=== PATIENT | male | born 1960 | race Caucasian/White ===

== ENCOUNTER 2024-12-25 16:07 | Inpatient (IN) ==
[2024-12-25 16:37] LABS: Hematocrit (blood only) 42.1 % (42.0-52.0); Hemoglobin 15.5 g/dl (14.0-18.0); Immature Granulocytes # (auto) 0.01 K/uL (0.01-0.20); Immature Granulocytes % (auto) 0.2 %; Mean Corpuscular Hemoglobin 33.0 pg (25.0-34.0); Mean Corpuscular Volume 89.6 fL (80.0-100.0); Platelet Count 173 K/uL (130-400); RDW Standard Deviation 45.8 fL (36.4-46.3); Red Blood Count 4.70 M/uL (4.70-6.10); White Blood Count 6.04 K/ul (4.8-10.8)
[2024-12-25 16:55] LABS: Alanine Aminotransferase 18.0 U/L (7-52); Albumin Globulin Ratio 1.2 (0.9-2); Albumin Level 4.6 gm/dl (3.4-5.0); Alkaline Phosphatase 59.0 U/L (34-104); Anion Gap 8.0 (3-11); Bilirubin,Total 0.4 mg/dl (0.2-1.0); Blood Urea Nitrogen 21.0 mg/dl (6-23); Calcium 9.6 mg/dl (8.6-10.3); Carbon Dioxide 25.0 mmol/L (21-32); Chloride 105.0 mmol/L (98-107); Creatinine Clr Calc Pharmacy 61.4 ml/min; Globulin 3.8 gm/dl (2.5-4.0); Glucose 133.0 mg/dl (70-99(Fasting)); Potassium 3.7 mmol/L (3.5-5.1); Sodium 138.0 mmol/L (136-145); Total Protein 8.4 gm/dl (6.0-8.3)
--- NOTE | 2024-12-25 17:02 | Emergency Department Note ---
Impression & Plan Stroke-like symptoms, Transient cerebral ischemia ED Provider Note NAME: RAJINDER TURCIOS AGE: 64 SEX: M : 1960 ARRIVES VIA: Walk-In INFORMANT: Patient, ED PROVIDER(S): Jose Ryder MD CHIEF COMPLAINT: Right hand weakness HPI: This is 64-year-old male presenting for right hand weakness. Patient notes that he felt somewhat off, was spinning sensation with a headache as well as right hand weakness starting around noon. He notes he just woke up from a nap. 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 He states was having trouble shaving his face due to not being coordinated. At the same time he also notes that he felt somewhat dizzy. Symptoms have resolved now. No associated chest pain, shortness of breath, back pain, facial droop, slurred speech ROS: See above HPI for pertinent positives & negatives. A total of 10 systems reviewed and were otherwise negative. PAST MEDICAL HISTORY: See Below PAST SURGICAL HISTORY: See Below FAMILY HISTORY: See Below SOCIAL HISTORY: See Below HOME MEDICATIONS: See Below ALLERGIES: See Below VITALS: See Below PHYSICAL EXAMINATION: General: resting comfortably in no acute distress Head: Normocephalic and atraumatic Eyes: Normal inspection, extraocular muscles intact Ear, nose, throat: Normal external exam Neck: Normal range of motion Respiratory: lungs clear to auscultation bilaterally Cardiovascular: Regular rate/rhythm, no murmur GI: soft, nontender, no guarding or rebound Extremities: nontender, moves all extremities Neuro: The patient awake and alert, appropriately conversive, no focal deficits, symmetric faces, cranial nerves II through XII intact, no motor weakness, no dysmetria, no motor drift Skin: Warm, dry, and intact MEDICAL DECISION MAKING: This is a 64-year-old male presenting for right hand weakness. Patient has 5/5 strength all extremities. He appears clinically well. Considered stroke, TIA, vertigo, intracranial hemorrhage. Will do screening blood work, urinalysis and CT imaging of the head to rule out stroke. Low concern for LVO currently - bloodwork is reviewed showing no significant leukocytosis, anemia, electrolyte or creatinine abnormality Urinalysis negative - CT imaging does not reveal acute process but does reveal bilateral moderate stenosis of the proximal ICA without LVO - Will admit patient for further TIA/stroke workup based on symptoms Differential diagnosis: TIA stroke, hemorrhage Independent History obtained from: Diagnostics interpreted by me: ECG: ECG independently interpreted by me with sinus tachycardia at a rate of 104, first-degree AV block normal QRS, normal QTc, no ST segment elevations consistent with STEMI criteria Cardiac Monitoring: An order was placed for continuous cardiac monitoring. The monitor shows a rate of 88 with sinus rhythm. 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 Beliefs That Will Affect Care: None Current Living Situation: Spouse Feels Safe at Home: Yes Safety Concerns: Feels Safe At This Time Allergies Allergies Allergy/AdvReac Type Severity Reaction Status Date / Time No Known Allergies Unverified 12/25/24 19:47 Home Meds Home Medications Medication Instructions Recorded Confirmed allopurinol 100 mg tablet 50 mg PO DAILY 12/25/24 12/25/24 allopurinol 300 mg tablet 300 mg PO DAILY 12/25/24 12/25/24 candesartan 32 mg tablet 32 mg PO DAILY 12/25/24 12/25/24 etanercept 50 mg/mL (1 mL) 50 mg subcut WK 12/25/24 12/25/24 subcutaneous pen injector (Enbrel SureClick) indapamide 2.5 mg tablet 2.5 mg PO DAILY 12/25/24 12/25/24 omeprazole magnesium 20 mg 20 mg PO DAILY 12/25/24 12/25/24 tablet,delayed release (Prilosec OTC) Results & Data (ED) Vital Signs Vital Signs - 24 hr 12/25/24 16:07 12/25/24 16:23 12/25/24 16:24 Temperature 36.6 C Temperature Source Oral Pulse Rate 110 H 100 H Pulse Rate [Apical] Pulse Rhythm [Apical] Pulse Strength [Apical] Respiratory Rate 18 Respiratory Effort / Characteristics Respiratory Depth Respiratory Pattern Blood Pressure 197/103 H Blood Pressure [Right Arm] Blood Pressure Mean 134 Blood Pressure Mean [Right Arm] Blood Pressure Position [Right Arm] Pulse Oximetry 97 98 Oxygen Delivery Method Room Air Sepsis Recent Fever Within 48 Hours No Sepsis New/Unexplained Change in Mental Status N/A Sepsis Action Taken by Nursing No Action Required 12/25/24 17:07 12/25/24 17:35 Temperature Temperature Source Pulse Rate Pulse Rate [Apical] 103 H Pulse Rhythm [Apical] Regular Pulse Strength [Apical] Normal Respiratory Rate 20 Respiratory Effort / Characteristics Non-Labored Spontaneous Respiratory Depth Normal Respiratory Pattern Regular Blood Pressure Blood Pressure [Right Arm] 161/87 H Blood Pressure Mean Blood Pressure Mean [Right Arm] 111 Blood Pressure Position [Right Arm] Lying Pulse Oximetry 96 94 Oxygen Delivery Method Room Air Room Air Sepsis Recent Fever Within 48 Hours Sepsis New/Unexplained Change in Mental Status Sepsis Action Taken by Nursing Laboratory Data 12/25/24 16:17 12/25/24 16:17 Lab Results 12/25/24 12/25/24 12/25/24 Range/Units 16:17 16:22 17:02 WBC 6.04 (4.8-10.8) K/ul RBC 4.70 (4.70-6.10) M/uL Hgb 15.5 (14.0-18.0) g/dl POC Hgb 15.0 (14.0-18.0) g/dl Hct 42.1 (42.0-52.0) % POC Hct 44 (42-52) % MCV 89.6 (80.0-100.0) fL MCH 33.0 (25.0-34.0) pg MCHC 36.8 H (32.0-36.0) g/dL RDW Std Deviation 45.8 (36.4-46.3) fL RDW Coeff of Andrew 13.9 (11.5-14.5) % Plt Count 173 (130-400) K/uL MPV 10.8 (9.4-12.4) fL Immature Gran % (Auto) 0.2 % Neut % (Auto) 65.0 % Lymph % (Auto) 26.2 % [place] % (Auto) 6.3 % Eos % (Auto) 1.3 % Baso % (Auto) 1.0 % Neut # (Auto) 3.93 (1.40-6.50) K/uL Lymph # (Auto) 1.58 (1.20-3.40) K/uL [place] # (Auto) 0.38 (0.11-0.59) K/uL Eos # (Auto) 0.08 (0.00-0.50) K/uL Baso # (Auto) 0.06 (0.00-0.20) K/uL Immature Gran # (Auto) 0.01 (0.01-0.20) K/uL POC Sodium 141 (135-144) mmol/L Sodium 138 (136-145) mmol/L POC Potassium 3.7 (3.3-5.0) mmol/L Potassium 3.7 (3.5-5.1) mmol/L POC Chloride 107 (101-112) mmol/L Chloride 105 (98-107) mmol/L Carbon Dioxide 25 (21-32) mmol/L POC Total CO2 22 L (24-31) mmol/L Anion Gap 8 (3-11) POC Anion Gap 16.0 (16-25) mmol/L POC BUN 22 H (7-18) mg/dl BUN 21 (6-23) mg/dl Creatinine 1.27 (0.6-1.4) mg/dl POC Creatinine 1.4 H (0.6-1.3) mg/dl Est Cr Clr Drug Dosing 61.4 ml/min eGFR 63.09 BUN/Creatinine Ratio 16.5 (10-20) Glucose 133 H (70-99(Fasting)) mg/dl POC Glucose (other) 137 H (70-99) mg/dl Calcium 9.6 (8.6-10.3) mg/dl POC Ioniz Calcium Abe 1.26 (1.12-1.32) mmol/l Total Bilirubin 0.4 (0.2-1.0) mg/dl AST 18 (13-39) U/L ALT 18 (7-52) U/L Alkaline Phosphatase 59 (34-104) U/L Total Protein 8.4 H (6.0-8.3) gm/dl Albumin 4.6 (3.4-5.0) gm/dl Globulin 3.8 (2.5-4.0) gm/dl Albumin/Globulin Ratio 1.2 (0.9-2) Urine Color Yellow Urine Appearance Clear (Clear) Urine pH 5.5 (4.5-7.5) Ur Specific [place] 1.010 (1.000-1.030) Urine Protein Negative (Negative) Urine Glucose (UA) Negative (Negative) Urine Ketones Negative (Negative) Urine Blood Negative (Negative) Urine Nitrite Negative (Negative) Urine Bilirubin Negative (Negative) Urine Urobilinogen Negative (Negative) Ur Leukocyte Esterase Negative (Negative) Urine Comment Administered Medications Aspirin (Aspirin 81 Mg Ectab) 81 mg PO QAM [facility] Stop: 01/24/25 18:44 Last Admin: 12/25/24 19:59 Dose: 81 mg Documented By: Atorvastatin Calcium (Atorvastatin 40 Mg Tab) 40 mg PO QAM [facility] Stop: 01/24/25 18:44 Last Admin: 12/25/24 19:59 Dose: 40 mg Documented By: Discontinued Medications Ioversol (Optiray 320 125ml) 120 ml IV ONCE ONE Stop: 12/25/24 17:10 Last Admin: 12/25/24 17:10 Dose: 120 ml Documented By: ASTER Imaging Data Radiologist's Impression: Head CTA 12/25/24 16:[address] without contrast CT angiogram of the neck CT angiogram of the brain with contrast Provided History: Neuro deficit Comparison: None Technique: HEAD CT: Using multidetector thin collimation helical acquisition technique, axial, coronal and sagittal CT images from the skull base to the vertex were obtained without intravenous contrast. HEAD and NECK CTA: During rapid bolus intravenous injection of nonionic contrast material, axial images were obtained using thin collimation multidetector helical technique from the base of the neck through the of vertex of the head. This CT angiogram data was reconstructed at thin intervals with mild overlap. 3D reconstructions were obtained. The axial source images, multiplanar reformations, 3D reconstructions in both maximum intensity projection display and volume rendered models were reviewed. Dose reduction techniques were achieved by using automatic exposure control and/or adjustment of mA and/or kV according to patient size and/or use of iterative reconstruction technique. Findings: Head CT: There is no intracranial hemorrhage, mass effect, or midline shift. Vang/white matter differentiation in both cerebral hemispheres is preserved. Ventricles are proportionate to the cerebral sulci. Head CTA demonstrates no aneurysm or stenosis of the major intracranial arteries. Neck CTA demonstrates atherosclerotic disease at the carotid bulbs bilaterally extending into the proximal ICA. On the left, there is a short segment of approximately 50% stenosis at the proximal ICA. On the right, there is a short segment of approximately 60% stenosis of the proximal ICA. The origins of the great vessels from the aortic arch are patent. No mass is noted within the visualized portions of the cervical soft tissues or lung apices. Impression: 1. Head CTA demonstrates no aneurysm or stenosis of the major intracranial arteries, 2. Neck CTA demonstrates focal atherosclerotic stenosis of the proximal ICA bilaterally, without large vessel occlusion. 3. No intracranial hemorrhage on the noncontrast head CT. Electronically signed by Carlos Eduardo Van 12-25-2024 5:31 PM Neck CTA 12/25/24 16:[address] without contrast CT angiogram of the neck CT angiogram of the brain with contrast Provided History: Neuro deficit Comparison: None Technique: HEAD CT: Using multidetector thin collimation helical acquisition technique, axial, coronal and sagittal CT images from the skull base to the vertex were obtained without intravenous contrast. HEAD and NECK CTA: During rapid bolus intravenous injection of nonionic contrast material, axial images were obtained using thin collimation multidetector helical technique from the base of the neck through the of vertex of the head. This CT angiogram data was reconstructed at thin intervals with mild overlap. 3D reconstructions were obtained. The axial source images, multiplanar reformations, 3D reconstructions in both maximum intensity projection display and volume rendered models were reviewed. Dose reduction techniques were achieved by using automatic exposure control and/or adjustment of mA and/or kV according to patient size and/or use of iterative reconstruction technique. Findings: Head CT: There is no intracranial hemorrhage, mass effect, or midline shift. Vang/white matter differentiation in both cerebral hemispheres is preserved. Ventricles are proportionate to the cerebral sulci. Head CTA demonstrates no aneurysm or stenosis of the major intracranial arteries. Neck CTA demonstrates atherosclerotic disease at the carotid bulbs bilaterally extending into the proximal ICA. On the left, there is a short segment of approximately 50% stenosis at the proximal ICA. On the right, there is a short segment of approximately 60% stenosis of the proximal ICA. The origins of the great vessels from the aortic arch are patent. No mass is noted within the visualized portions of the cervical soft tissues or lung apices. Impression: 1. Head CTA demonstrates no aneurysm or stenosis of the major intracranial arteries, 2. Neck CTA demonstrates focal atherosclerotic stenosis of the proximal ICA bilaterally, without large vessel occlusion. 3. No intracranial hemorrhage on the noncontrast head CT. Electronically signed by Carlos Eduardo Van 12-25-2024 5:30 PM Discharge Plan Visit Data Chief Complaint: Neuro Symptoms/Deficit Stated Complaint: R ARM NUMBNESS ED Provider: Jose Ryder Discharge Problem: Stroke-like symptoms, Transient cerebral ischemia Patient Disposition: Admitted As Inpatient Condition: Fair Discharge Instructions Interventions: ED Discharge Assessment Last Done: 12/25/24 21:22 Discharge Problem: Transient cerebral ischemia Qualifiers: Transient cerebral ischemia type: unspecified Qualified Code(s): G45.9 - Transient cerebral ischemic attack, unspecified
[2024-12-25] MEDS: OPTIRAY 320 125ml IV ONE (17:10)
[2024-12-25 17:22] LABS: Appearance Urine Clear (Clear); Glucose Urine UA Negative (Negative)
--- NOTE | 2024-12-25 17:31 | CT Scan Report ---
Head CT without contrast CT angiogram of the neck CT angiogram of the brain with contrast Provided History: Neuro deficit Comparison: None Technique: HEAD CT: Using multidetector thin collimation helical acquisition technique, axial, coronal and sagittal CT images from the skull base to the vertex were obtained without intravenous contrast. HEAD and NECK CTA: During rapid bolus intravenous injection of nonionic contrast material, axial images were obtained using thin collimation multidetector helical technique from the base of the neck through the of vertex of the head. This CT angiogram data was reconstructed at thin intervals with mild overlap. 3D reconstructions were obtained. The axial source images, multiplanar reformations, 3D reconstructions in both maximum intensity projection display and volume rendered models were reviewed. Dose reduction techniques were achieved by using automatic exposure control and/or adjustment of mA and/or kV according to patient size and/or use of iterative reconstruction technique. Findings: Head CT: There is no intracranial hemorrhage, mass effect, or midline shift. Vang/white matter differentiation in both cerebral hemispheres is preserved. Ventricles are proportionate to the cerebral sulci. Head CTA demonstrates no aneurysm or stenosis of the major intracranial arteries. Neck CTA demonstrates atherosclerotic disease at the carotid bulbs bilaterally extending into the proximal ICA. On the left, there is a short segment of approximately 50% stenosis at the proximal ICA. On the right, there is a short segment of approximately 60% stenosis of the proximal ICA. The origins of the great vessels from the aortic arch are patent. No mass is noted within the visualized portions of the cervical soft tissues or lung apices. Impression: 1. Head CTA demonstrates no aneurysm or stenosis of the major intracranial arteries, 2. Neck CTA demonstrates focal atherosclerotic stenosis of the proximal ICA bilaterally, without large vessel occlusion. 3. No intracranial hemorrhage on the noncontrast head CT. Electronically signed by Carlos Eduardo Van 12-25-2024 5:30 PM
--- NOTE | 2024-12-25 18:17 | History & Physical Report ---
Date of Service December 25, 2024 Assessment & Plan (1) Stroke-like symptoms: (2) HTN (hypertension): (3) Prediabetes: (4) GERD (gastroesophageal reflux disease): Plan Patient is a 64-year-old male with past medical history significant for HTN, prediabetes, idiopathic chronic gout of multiple sites, leukoplakia of oral cavity and psoriatic arthritis who presented to the ED with complaint of strokelike symptoms including right hand and forearm paraesthesias, dizziness and intermittent blurry vision. Woke up this morning around 7 or 8 AM "feeling off." [place] disoriented, dizzy. Took nap around noon. Woke up from nap with paresthesias in his right hand which radiated up into the right mid forearm region. No right upper extremity weakness, facial drooping or speech deficits. Decided to run an errand to see if symptoms would improve, developed intermittent blurry vision while driving. Symptoms seemed to improve upon arrival to the ED. At the time of my evaluation, patient's symptoms have fully resolved. #Strokelike symptoms, CVA r/o Labs personally reviewed and grossly unremarkable, including UA Head CT: no intracranial hemorrhage, mass effect or midline shift Head CTA: no aneurysm or stenosis of the major intracranial arteries Neck CTA: focal atherosclerotic stenosis of the proximal ICA bilaterally (R=60%, L=50%) without large vessel occlusion Full CVA workup pending including brain MRI, TTE, hemoglobin A1c and lipid panel, neurology consult Will start on ASA 81mg daily, Lipitor 40mg daily Appreciate PT/OT evaluations #HTN Will hold home antihypertensives for now to allow for permissive HTN Goal BP = or < 220/120 for the first 24-48hr #Prediabetes Hemoglobin A1c 5.9% 1 year ago Follow repeat hemoglobin A1c in a.m. 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 Blanchard DVT Prophylaxis: SCDs/TEDs for now Code Status: FULL CODE PCP: Pawan Valdovinos MD Disposition: Admit to med/telemetry Patient seen in collaboration with Dr. Baldwin. Please see addendum. I spent a total of 65 minutes coordinating, documenting, and providing care for this patient excluding time spent in the performance of separately billed services or time spent by another provider/QHP. This included personally reviewing all current laboratories and imaging studies, medical reconciliation, outpatient chart review and discussion with specialists. This chart was completed in part utilizing Speech Voice Recognition Software. Grammatical errors, random word insertions, pronoun errors, and incomplete sentences are an occasional consequence of this system due to software limitations, ambient noise, and hardware issues. Any formal questions or c oncerns about the content, text, or information contained within the body of this dictation should be directly addressed to the provider for clarification. History of Present Illness Chief Complaint: Strokelike symptoms Primary Care Provider: Pawna Valdovinos MD Patient is a 64-year-old male with past medical history significant for HTN, prediabetes, idiopathic chronic gout of multiple sites, leukoplakia of oral cavity and psoriatic arthritis who presented to the ED with complaint of strokelike symptoms including right hand and forearm paraesthesias, dizziness and intermittent blurry vision. History obtained from the patient, patient's at bedside, discussion with ED provider and associated chart review. Woke up this morning feeling "off" around 7 or 8 AM. Notes he felt some dizziness and overall felt like his "coordination was off." Describes it as feeling like he was intoxicated. Did end up taking a short nap around noon. Woke up from the nap with right hand paresthesias. This traveled about alf up his right forearm but no further. Denies any right upper extremity weakness with this. No paresthesias or weakness in the right lower extremity. his is at home with him. No reported facial drooping or speech deficits. He decided to run an errand and see if these symptoms would wear off over time. He did experience some intermittent blurry vision while driving. He decided to return home and took a shower. His symptoms did not improve so he decided to come into the ED for further evaluation. Upon arrival to the ED, his symptoms started to improve. At the time of my evaluation, his symptoms were resolved. No smoking history. Rare alcohol use. No personal history of stroke. Maternal grandfather with history of stroke, uncertain age of when this occurred. Has 2 younger brothers with significant coronary artery disease. Allergies Allergy/AdvReac Type Severity Reaction Status Date / Time No Known Allergies Unverified 12/25/24 19:47 Home Medications Medication Instructions Recorded Confirmed Type allopurinol 100 mg tablet 50 mg PO DAILY 12/25/24 12/25/24 History allopurinol 300 mg tablet 300 mg PO DAILY 12/25/24 12/25/24 History candesartan 32 mg tablet 32 mg PO DAILY 12/25/24 12/25/24 History etanercept 50 mg/mL (1 mL) 50 mg subcut WK 12/25/24 12/25/24 History subcutaneous pen injector (Enbrel SureClick) indapamide 2.5 mg tablet 2.5 mg PO DAILY 12/25/24 12/25/24 History omeprazole magnesium 20 mg 20 mg PO DAILY 12/25/24 12/25/24 History tablet,delayed release (Prilosec OTC) Past Med/Surg History Problem List (Updated 12/25/24 @ 22:18 by Gogo Garcia PA-C) GERD (gastroesophageal reflux disease) Prediabetes HTN (hypertension) Stroke-like symptoms Social History Smoking Status: Former smoker Tobacco Type: Cigarettes Hx Alcohol Use: Yes Hx Substance Use: No Preferred Language: Nauruan Communication Ability: Effective Furnace Converter Required: No Beliefs That Will Affect Care: None Current Living Situation: Spouse Feels Safe at Home: Yes Safety Concerns: Feels Safe At This Time Review of Systems Review of Systems: At least ten systems reviewed and negative, except as noted in the HPI. Physical Exam Physical Exam: General: WD/WN, vitals as above, NAD, sitting up in bed, pleasant, conversing appropriately. A+Ox3, at bedside HEENT: Normocephalic, atraumatic, external ear and nose normal, oropharynx normal Respiratory: Normal respiratory effort, CTAB Cardiovascular: RRR, normal peripheral pulses, no BLE edema Abdomen/GI: Normal bowel sounds, soft, nontender to palpation in all quadrants Extremities/Musculoskeletal: No cyanosis or clubbing, extremities motor strength intact, moves all extremities Neurologic: No overt focal deficits, CN's II-XI not formally tested but appear grossly intact bilaterally Results & Data Results & Data Vital Signs (Past 12 Hours) Vital Signs Temp Pulse Pulse Resp BP BP Pulse Ox 12/25/24 17:35 103 H 20 161/87 H 94 12/25/24 17:07 96 12/25/24 16:24 100 H 12/25/24 16:23 98 10/03/25 16:07 36.6 C 110 H 18 197/103 H 97 O2 Del Method 12/25/24 17:35 Room Air 12/25/24 17:07 Room Air 12/25/24 16:24 12/25/24 16:23 12/25/24 16:07 Room Air Laboratory Results Short CBC 12/25/24 Range/Units 16:17 WBC 6.04 (4.8-10.8) K/ul Hgb 15.5 (14.0-18.0) g/dl Hct 42.1 (42.0-52.0) % Plt Count 173 (130-400) K/uL BMP 12/25/24 16:17 Sodium 138 Potassium 3.7 Chloride 105 Carbon Dioxide 25 BUN 21 Creatinine 1.27 Glucose 133 H Calcium 9.6 Liver Function 12/25/24 Range/Units 16:17 Total Bilirubin 0.4 (0.2-1.0) mg/dl AST 18 (13-39) U/L ALT 18 (7-52) U/L Alkaline Phosphatase 59 (34-104) U/L Albumin 4.6 (3.4-5.0) gm/dl Urine 12/25/24 Range/Units 17:02 Urine Color Yellow Urine Appearance Clear (Clear) Urine pH 5.5 (4.5-7.5) Ur Specific Bruce 1.010 (1.000-1.030) Urine Protein Negative (Negative) Urine Glucose (UA) Negative (Negative) Diagnostic Findings Head CTA 12/25/24 16:[address] without contrast CT angiogram of the neck CT angiogram of the brain with contrast Provided History: Neuro deficit Comparison: None Technique: HEAD CT: Using multidetector thin collimation helical acquisition technique, axial, coronal and sagittal CT images from the skull base to the vertex were obtained without intravenous contrast. HEAD and NECK CTA: During rapid bolus intravenous injection of nonionic contrast material, axial images were obtained using thin collimation multidetector helical technique from the base of the neck through the of vertex of the head. This CT angiogram data was reconstructed at thin intervals with mild overlap. 3D reconstructions were obtained. The axial source images, multiplanar reformations, 3D reconstructions in both maximum intensity projection display and volume rendered models were reviewed. Dose reduction techniques were achieved by using automatic exposure control and/or adjustment of mA and/or kV according to patient size and/or use of iterative reconstruction technique. Findings: Head CT: There is no intracranial hemorrhage, mass effect, or midline shift. Vang/white matter differentiation in both cerebral hemispheres is preserved. Ventricles are proportionate to the cerebral sulci. Head CTA demonstrates no aneurysm or stenosis of the major intracranial arteries. Neck CTA demonstrates atherosclerotic disease at the carotid bulbs bilaterally extending into the proximal ICA. On the left, there is a short segment of approximately 50% stenosis at the proximal ICA. On the right, there is a short segment of approximately 60% stenosis of the proximal ICA. The origins of the great vessels from the aortic arch are patent. No mass is noted within the visualized portions of the cervical soft tissues or lung apices. Impression: 1. Head CTA demonstrates no aneurysm or stenosis of the major intracranial arteries, 2. Neck CTA demonstrates focal atherosclerotic stenosis of the proximal ICA bilaterally, without large vessel occlusion. 3. No intracranial hemorrhage on the noncontrast head CT. Electronically signed by Carlos Eduardo Van 12-25-2024 5:31 PM Neck CTA 12/25/24 16:[address] without contrast CT angiogram of the neck CT angiogram of the brain with contrast Provided History: Neuro deficit Comparison: None Technique: HEAD CT: Using multidetector thin collimation helical acquisition technique, axial, coronal and sagittal CT images from the skull base to the vertex were obtained without intravenous contrast. HEAD and NECK CTA: During rapid bolus intravenous injection of nonionic contrast material, axial images were obtained using thin collimation multidetector helical technique from the base of the neck through the of vertex of the head. This CT angiogram data was reconstructed at thin intervals with mild overlap. 3D reconstructions were obtained. The axial source images, multiplanar reformations, 3D reconstructions in both maximum intensity projection display and volume rendered models were reviewed. Dose reduction techniques were achieved by using automatic exposure control and/or adjustment of mA and/or kV according to patient size and/or use of iterative reconstruction technique. Findings: Head CT: There is no intracranial hemorrhage, mass effect, or midline shift. Vang/white matter differentiation in both cerebral hemispheres is preserved. Ventricles are proportionate to the cerebral sulci. Head CTA demonstrates no aneurysm or stenosis of the major intracranial arteries. Neck CTA demonstrates atherosclerotic disease at the carotid bulbs bilaterally extending into the proximal ICA. On the left, there is a short segment of approximately 50% stenosis at the proximal ICA. On the right, there is a short segment of approximately 60% stenosis of the proximal ICA. The origins of the great vessels from the aortic arch are patent. No mass is noted within the visualized portions of the cervical soft tissues or lung apices. Impression: 1. Head CTA demonstrates no aneurysm or stenosis of the major intracranial arteries, 2. Neck CTA demonstrates focal atherosclerotic stenosis of the proximal ICA bilaterally, without large vessel occlusion. 3. No intracranial hemorrhage on the noncontrast head CT. Electronically signed by Carlos Eduardo Van 12-25-2024 5:30 PM Medications Administered Discontinued Medications Ioversol (Optiray 320 125ml) 120 ml IV ONCE ONE Stop: 12/25/24 17:10 Last Admin: 12/25/24 17:10 Dose: 120 ml Documented By: ASTER Supervising Physician Co-Signing Physician Notes Attending Addendum: Case reviewed with the advanced practitioner. I have personally performed a history and physical examination on the patient. I have reviewed the advanced practitioner's documentation on the date of service referenced in note, and I agree with, and take responsibility for the plan of care. please refer to her notes for full details patient seen and examined, records reviewed by myself as well on exam, patient seen resting in bed, comfortable, very pleasant states R hand/forearm paresthesias and loss of coordination have resolved no other focal neuro symptoms no other symptoms VS noted and reviewed oriented x 3, not in distress, speaks in sentences with no effort nor accessory muscle use normal rate, regular rhythm, no murmurs clear breath sounds bilaterally non distended, soft, nontender no bipedal edema, erythema, warmth R UE 5/5 motor strength and 100% sensation, no other neuro deficits noted all labs, imaging noted and reviewed ASSESSMENT AND PLAN> EPISODE OF RIGHT HAND PARESTHESIAS, LOSS OF COORDINATION TIA VS ACUTE CVA symptoms have resolved CT angio head and neck: 1. Head CTA demonstrates no aneurysm or stenosis of the major intracranial arteries, 2. Neck CTA demonstrates focal atherosclerotic stenosis of the proximal ICA bilaterally, without large vessel occlusion. 3. No intracranial hemorrhage on the noncontrast head CT. Brain MRI ordered Echo ordered Aspirin and Atorvastatin ordered permissive hypertension monitor in Telemetry Neurology consulted other diagnoses and plan of care as per advanced practitioner's notes I spent a total of 40 minutes coordinating, documenting, and providing care for this patient, excluding time spent in the performance of separately billed services or time spent by another provider/QHP. Eulogio Baldwin MD
[2024-12-25] MEDS ORDERED: PHARMACIST DISCHARGE MED REC CONSULT PRN ×2 (18:34→21:38)
--- NOTE | 2024-12-25 18:56 | Electrocardiogram Report ---
Test Reason : Blood Pressure : */* mmHG Vent. Rate : 104 BPM Atrial Rate : 104 BPM P-R Int : 212 ms QRS Dur : 94 ms QT Int : 336 ms P-R-T Axes : 45 4 53 degrees QTcB Int : 441 ms Sinus tachycardia with 1st degree A-V block Otherwise normal ECG Confirmed by Carlos Eduardo Mora ([id number]) on 12/25/2024 6:56:09 PM Referred By: Confirmed By: Carlos Eduardo Mora
[2024-12-25] MEDS: ASPIRIN 81 MG ECTAB PO SCH (19:59)
[2024-12-25] MEDS: ATORVASTATIN 40 MG TAB PO SCH (19:59)
[2024-12-25] MEDS ORDERED: ACETAMINOPHEN 325 MG TAB PO PRN (21:38)
[2024-12-25] MEDS ORDERED: POLYETHYLENE (MIRALAX) 17 GM PACK PO PRN (21:38)
[2024-12-25] MEDS ORDERED: MAGNESIUM HYDROXIDE SUSP 30 ML UDC PO PRN (21:38)
[2024-12-25] MEDS ORDERED: ONDANSETRON INJ 2 MG/ML 2 ML VIAL IV PRN (21:38)
--- NOTE | 2024-12-25 23:42 | Magnetic Resonance Report ---
Exam(s): MRI HEAD Without Contrast EXAM: MR Head Without Intravenous Contrast CLINICAL HISTORY: Reason for exam: CVA r/o. TECHNIQUE: Magnetic resonance images of the head/brain without intravenous contrast in multiple planes. COMPARISON: CTA 12/25/2024 FINDINGS: Brain: No diffusion restriction to suggest acute cerebral ischemia. No acute intracranial hemorrhage. No abnormal extra-axial fluid collection. No mass effect or midline shift. Senescent calcifications bilateral globi pallidi. Parenchymal volume normal for age. Few foci of FLAIR signal hyperintensity in the cerebral white matter suggesting minimal chronic small-vessel ischemic change. Ventricles: Unremarkable. No hydrocephalus. Bones/joints: Unremarkable. No acute fracture. Sinuses: Underpneumatized right frontal sinus. Trace mucosal thickening in the ethmoids. Mastoid air cells: Unremarkable as visualized. No mastoid effusion. Orbits: Lens replacements. IMPRESSION: No diffusion restriction to suggest acute cerebral ischemia. Electronically signed by: Chiqui Mcclellan M.D. 12/25/24 23:42 PM
[2024-12-26 06:09] LABS: Hematocrit (blood only) 39.3 % (42.0-52.0); Hemoglobin 14.5 g/dl (14.0-18.0); Mean Corpuscular Hemoglobin 32.8 pg (25.0-34.0); Mean Corpuscular Volume 88.9 fL (80.0-100.0); Platelet Count 159 K/uL (130-400); RDW Standard Deviation 45.2 fL (36.4-46.3); Red Blood Count 4.42 M/uL (4.70-6.10); White Blood Count 7.16 K/ul (4.8-10.8)
[2024-12-26 06:27] LABS: Anion Gap 9.0 (3-11); Blood Urea Nitrogen 21.0 mg/dl (6-23); Calcium 9.3 mg/dl (8.6-10.3); Carbon Dioxide 24.0 mmol/L (21-32); Chloride 105.0 mmol/L (98-107); Cholesterol 178.0 mg/dl (0-200); Creatinine Clr Calc Pharmacy 100.9 ml/min; Glucose 124.0 mg/dl (70-99(Fasting)); HDL Cholesterol 43.0 mg/dl; Potassium 3.5 mmol/L (3.5-5.1); Sodium 138.0 mmol/L (136-145); Triglycerides 147.0 mg/dl (0-150)
[2024-12-26 07:31] VITALS: RESP 20
[2024-12-26 07:42] LABS: Hemoglobin A1C 5.9 % (4.5-5.6)
[2024-12-26] MEDS: CLOPIDOGREL BISULFATE 75 MG TAB PO SCH (10:07)
[2024-12-26 11:23] VITALS: BP 137/74; PULSE 96; TEMP 98.2; O2SAT 96
--- NOTE | 2024-12-26 12:33 | XCELERA ---
[id number]
[2024-12-26] MEDS ORDERED: STROKE PATIENT DISCHARGE STA (13:25)
--- NOTE | 2024-12-26 13:26 | Communication Note ---
Date of Service: December 26, 2024 64-year-old male patient with PMH of prediabetes, hypertension, who is presenting with right arm numbness without weakness that was transient, CTA was reviewed and shows bilateral atherosclerotic disease without severe stenosis. Echocardiogram shows no source of cardiac emboli. Recommend aspirin 81 mg in addition to Plavix 75 mg and atorvastatin 80 mg for 21 days followed by aspirin 81 mg and statin. Risk factor modifications. Follow-up with neurology as an outpatient. Consider Zio patch upon discharge
--- NOTE | 2024-12-26 13:30 | Discharge Summary ---
Date of Service December 26, 2024 Admission HPI Per Admitting Provider Patient is a 64-year-old male with past medical history significant for HTN, prediabetes, idiopathic chronic gout of multiple sites, leukoplakia of oral cavity and psoriatic arthritis who presented to the ED with complaint of strokelike symptoms including right hand and forearm paraesthesias, dizziness and intermittent blurry vision. History obtained from the patient, patient's at bedside, discussion with ED provider and associated chart review. Woke up this morning feeling "off" around 7 or 8 AM. Notes he felt some dizziness and overall felt like his "coordination was off." Describes it as feeling like he was intoxicated. Did end up taking a short nap around noon. Woke up from the nap with right hand paresthesias. This traveled about assisted up his right forearm but no further. Denies any right upper extremity weakness with this. No paresthesias or weakness in the right lower extremity. his is at home with him. No reported facial drooping or speech deficits. He decided to run an errand and see if these symptoms would wear off over time. He did experience some intermittent blurry vision while driving. He decided to return home and took a shower. His symptoms did not improve so he decided to come into the ED for further evaluation. Upon arrival to the ED, his symptoms started to improve. At the time of my evaluation, his symptoms were resolved. No smoking history. Rare alcohol use. No personal history of stroke. Maternal grandfather with history of stroke, uncertain age of when this occurred. Has 2 younger brothers with significant coronary artery disease. Admission Exam Per Admitting Provider General: WD/WN, vitals as above, NAD, sitting up in bed, pleasant, conversing appropriately. A+Ox3, at bedside HEENT: Normocephalic, atraumatic, external ear and nose normal, oropharynx normal Respiratory: Normal respiratory effort, CTAB Cardiovascular: RRR, normal peripheral pulses, no BLE edema Abdomen/GI: Normal bowel sounds, soft, nontender to palpation in all quadrants Extremities/Musculoskeletal: No cyanosis or clubbing, extremities motor strength intact, moves all extremities Neurologic: No overt focal deficits, CN's II-XI not formally tested but appear grossly intact bilaterally Principal Diagnosis Strokelike symptoms Discharge Exam General: WD/WN, vitals as above, NAD, sitting up in bed, pleasant, conversing appropriately. A+Ox3, HEENT: Normocephalic, atraumatic, external ear and nose normal, oropharynx normal Respiratory: Normal respiratory effort, CTAB Cardiovascular: RRR, normal peripheral pulses, no BLE edema Abdomen/GI: Normal bowel sounds, soft, nontender to palpation in all quadrants Extremities/Musculoskeletal: No cyanosis or clubbing, extremities motor strength intact, moves all extremities Neurologic: No overt focal deficits, CN's II-XI not formally tested but appear grossly intact bilaterally Discharge Data Allergies Allergy/AdvReac Type Severity Reaction Status Date / Time No Known Allergies Unverified 12/25/24 19:47 Consultations 12/25/24 18:16 ED Decision to Admit Stat 12/25/24 21:38 Consult Neurology Routine Ordered Studies 12/25/24 16:49 CTA head wo/w [CT angio head wo/w] Stat CTA neck with con [CT angio neck with con] Stat 12/25/24 21:38 MR brain wo con Routine Hospital Course (1) Transient cerebral ischemia: Plan Patient was seen and examined at bedside as a follow-up of TIA. Patient reports improvement in his right hand numbness/tingling. Patient denies any blurry vision. Patient denies any further neurological signs and symptoms. Imagings of the head and neck reviewed. No acute infarct noted. Echo reviewed. DAPT and statin has been started, patient educated to avoid omeprazole while on Plavix. Case was discussed with neurology who recommended DAPT and statin and patient can be discharged. Patient is hemodynamically stable and offers no other complaints. Patient is being discharged with following instructions at the point of discharge: Follow-up with your primary care physician within a week time and likely you will need labs CBC/CMP/magnesium/phosphorus. You have been started on aspirin, Plavix, atorvastatin. Continue with Plavix for total of 21 days starting 01/05/2025. While on Plavix avoid immo-sil-[id number] omeprazole. Continue aspirin and statin indefinitely. Follow-up with neurology in 4 to 8 weeks time upon discharge. He will benefit from Zio patch monitoring upon discharge, coordinate with the PCP office to set up the test. Take your medications as prescribed. Please make sure that you are able to get your medications today by calling your pharmacy before you leave the hospital so that your treatment continuity is not broken. Home Health Attestation I certify that this patient is under my care and that I, or a physicians assistant men's soccer coach working with me, had a face to-face encounter that meets the home health styu-bl-vzit encounter requirements with this patient. The encounter with the patient was in whole, or in part, for the following medical condition, which is the primary reason for home health care (list medical condition): I certify that, based on my findings, the following services are medically necessary home health services: My clinical findings support the need for the above services because: Further, I certify that my clinical findings support that this patient is homebound (i.e. absences from home require considerable and taxing effort and are for medical reasons or yarsanism services or infrequently or of short duration when for other reasons) because: Certification for Home Health Services: Based on the above findings, I certify that this patient is confined to the home and needs intermittent fci care, physical therapy and/or speech therapy or continues to need occupational therapy. The patient is under my care, and I have initiated the establishment of the plan of care. This patient will be followed by a physician who will periodically review the plan of care. Total Time Total Time Spent Total Time Spent (In Minutes): 45 Discharge Plan Discharge Items Patient Disposition: Home - Self-Care Reason For Visit: CVA R/O Discharge Diagnosis: Strokelike symptoms Condition on Discharge: Fair Activity: Resume your previous activity Non-emergency contact: Primary Care Provider Call non-emergency contact if: you have any medication questions Follow-up/Referrals: Pawan Valdovinos MD [Primary Care Provider] - Diet: Heart Healthy Addtl Attending Provider Instructions: Follow-up with your primary care physician within a week time and likely you will need labs CBC/CMP/magnesium/phosphorus. You have been started on aspirin, Plavix, atorvastatin. Continue with Plavix for total of 21 days starting 01/05/2025. While on Plavix avoid [id number] omeprazole. Continue aspirin and statin indefinitely. Follow-up with neurology in 4 to 8 weeks time upon discharge. He will benefit from Zio patch monitoring upon discharge, coordinate with the PCP office to set up the test. Take your medications as prescribed. Please make sure that you are able to get your medications today by calling your pharmacy before you leave the hospital so that your treatment continuity is not broken. Pending Studies at Discharge: No Stand-Alone Forms: My [facility], Smoking Cessation Medications and DC Order Prescriptions: New clopidogrel 75 mg Tablet 75 mg PO QAM 20 Days Qty: 20 0RF atorvastatin 40 mg Tablet 40 mg PO QAM Qty: 30 0RF aspirin 81 mg Tablet,Delayed Release (Dr/Ec) 81 mg PO QAM Qty: 30 0RF Continued indapamide 2.5 mg tablet 2.5 mg PO DAILY allopurinol 100 mg Tablet 50 mg PO DAILY Rx Instructions: TAKE WITH ALLOPURINOL 300 MG (TOTAL 350MG) candesartan 32 mg tablet 32 mg PO DAILY allopurinol 300 mg tablet 300 mg PO DAILY Rx Instructions: TAKE WITH 0.5 TAB ALLOPURINOL 100MG (TOTAL 350MG) Enbrel SureClick 50 mg/mL (1 mL) pen injector 50 mg SUBCUT WK Rx Instructions: EVERY SATURDAY Held omeprazole magnesium [Prilosec OTC] 20 mg Tablet,Delayed Release (Dr/Ec) 20 mg PO DAILY Hold Instructions: Resume on 01/16/25. hold while on plavix Discharge Orders: Discharge Order (Routine); Ordered 12/26/24 Ordered By: Nicole Oneill Admission Data Admit Date/Time: 12/25/24 18:28 Attending Provider: Nicole Oneill Admit Provider: Eulogio Baldwin Primary Care Provider: Pawan Valdovinos Other Providers: Eulogio Baldwin; Leora Baron
--- NOTE | 2024-12-28 13:59 | Pharmacy Report ---
Pharmacist Stroke Counseling - Date of Service December 28, 2024 - Scope: Pharmacy has been consulted to provide medication discharge counseling for this patient admitted with transient ischemic attack as per the Pharmacist Discharge Counseling for Stroke Patients Protocol. - Medications on Discharge: Home Medications Medication Instructions Recorded Confirmed allopurinol 100 mg tablet 50 mg PO DAILY 12/25/24 12/25/24 allopurinol 300 mg tablet 300 mg PO DAILY 12/25/24 12/25/24 candesartan 32 mg tablet 32 mg PO DAILY 12/25/24 12/25/24 etanercept 50 mg/mL (1 mL) 50 mg subcut WK 12/25/24 12/25/24 subcutaneous pen injector (Enbrel SureClick) indapamide 2.5 mg tablet 2.5 mg PO DAILY 12/25/24 12/25/24 omeprazole magnesium 20 mg 20 mg PO DAILY 12/25/24 12/25/24 tablet,delayed release (Prilosec OTC) New Rx's Medication Instructions Recorded aspirin 81 mg tablet,delayed 81 mg PO QAM #30 tabs 12/26/24 release atorvastatin 40 mg tablet 40 mg PO QAM #30 tabs 12/26/24 clopidogrel 75 mg tablet 75 mg PO QAM 20 days #20 tabs 12/26/24 - Action: The above medications, specifically ones for stroke treatment/prophylaxis, have been reviewed in detail with the patient via phone 3 days post-discharge. This includes indication, common adverse reactions, drug interactions, and medication administration. Medication counseling has been employed using the teach-back method to ensure understanding. - Outcome: The patient has demonstrated understanding of the medications. Additional comments: Patient very grateful for our call, and plans to follow up with PCP this week. Thank you for allowing pharmacy to be involved in the care of this patient. Please call [phone] with any additional questions
== END 2024-12-26 14:37 | disposition home or self-care (01) | DRG 69 ==
LOC: ED 16:07 → SUATTDRO 18:28 → 4W 18:28